=== PATIENT | female | born 1985 | race Caucasian/White ===

== ENCOUNTER 2017-08-26 11:45 | Observation (INO) | payer OTHER, BC ==
[~2017-08-26] VITALS: Ht 167.6 cm; Wt 72.6 kg
[~2017-08-26 11:45] MED LIST: FERR325E14 PO; IBUP-2213 PO; PREN-385 PO
[2017-08-26 12:24] VITALS: BP 138/86
[2017-08-26 12:46] LABS: BASOPHILS # (AUTO) 0.2 K/uL (0.00-0.22); BASOPHILS % (AUTO) 2.3 % (0.0-2.0); EOSINOPHILS # (AUTO) 0.3 K/uL (0-0.4); EOSINOPHILS % (AUTO) 2.4 % (0.0-4.0); HEMATOCRIT 36.4 % (36-48); HEMOGLOBIN 11.9 g/dL (12.0-16.0); LYMPHOCYTES # (AUTO) 0.8 K/uL (2.5-16.5); LYMPHOCYTES % (AUTO) 7.8 % (20.5-51.1); MEAN CORPUSCULAR HEMOGLOBIN 28 pg (27-31); MEAN CORPUSCULAR HGB CONC 33 g/dL (33-37); MEAN CORPUSCULAR VOLUME 86 fL (80-94); MONOCYTES # (AUTO) 0.8 K/uL (0.8-1.0); MONOCYTES % (AUTO) 7.5 % (1.7-9.3); NEUTROPHILS # (AUTO) 8.7 K/uL (1.8-7.7); PLATELET COUNT (AUTO) 244 K/uL (140-450); RED BLOOD CELL COUNT(AUTO) 4.22 MIL/uL (4.20-5.40); RED CELL DISTRIBUTION WIDTH 14.2 % (11.6-13.7); WHITE BLOOD COUNT (AUTO) 10.8 K/uL (4.8-10.8)
[2017-08-26 12:55] LABS: ANION GAP 12.5 (8-16); CARBON DIOXIDE 26.1 mmol/L (21-32); POTASSIUM 3.6 mmol/L (3.5-5.1)
[2017-08-26 12:56] LABS: CREATININE 0.5 mg/dL (0.6-1.3)
[2017-08-26 13:07] LABS: TOTAL BILIRUBIN 0.3 mg/dL (0.0-1.0)
[2017-08-26 13:08] LABS: ALBUMIN 2.6 g/dL (3.4-5.0)
== END 2017-08-26 16:57 | disposition home or self-care (01) ==
LOC: MLD 11:45
PROVIDERS: ADMIT Obstetrics & Gynecology; ATTEND Obstetrics & Gynecology
DX: O26.892 Other specified pregnancy related conditions, second trimester (principal); R10.9 Unspecified abdominal pain; Z3A.20 20 weeks gestation of pregnancy
CPT/HCPCS: 36415; 76705; 76805; 80053; 82150; 83690; 85025; G0378; Q0092; 59025; 81000

== ENCOUNTER 2017-12-07 18:25 | Observation (INO) | payer OTHER, BC ==
[~2017-12-07] VITALS: Ht 167.6 cm; Wt 83.5 kg
[2017-12-07 19:08] VITALS: BP 126/80
[2017-12-07] MEDS ORDERED: NACL 0.9% 1,000 ML IV SCH (19:20)
[2017-12-07] MEDS ORDERED: ACETAMINOPHEN 325 MG TAB PO PRN (21:05)
[2017-12-07] MEDS ORDERED: ACETAMINOPHEN 325 MG TAB ONE (21:12)
== END 2017-12-08 00:10 | disposition home or self-care (01) ==
LOC: MLD 18:25
PROVIDERS: ADMIT Obstetrics & Gynecology; ATTEND Obstetrics & Gynecology
DX: O99.89 Other specified diseases and conditions complicating pregnancy, childbirth and the puerperium (principal); M54.9 Dorsalgia, unspecified; Z3A.36 36 weeks gestation of pregnancy
CPT/HCPCS: 81000; 96360; 96361; G0378; J7030

== ENCOUNTER 2017-12-28 18:21 | Inpatient (IN) | payer OTHER, BC ==
[~2017-12-28] VITALS: Ht 167.6 cm; Wt 83.5 kg
[~2017-12-28 18:21] MED LIST changes: -IBUP-2213 PO
[2017-12-28] MEDS ORDERED: CITRIC ACID/SODIUM CITRATE 30 ML UDC PO ONE (18:30)
[2017-12-28] MEDS ORDERED: CLINDAMYCIN 900 MG in DEXTROSE 5% 100 ML IV SCH (18:30)
[2017-12-28] MEDS ORDERED: LACTATED RINGERS 1,000 ML IV SCH (18:30)
[2017-12-28 19:15] LABS: BASOPHILS % (AUTO) 0.3 % (0.0-2.0); EOSINOPHILS # (AUTO) 0.1 K/uL (0-0.4); EOSINOPHILS % (AUTO) 0.9 % (0.0-4.0); HEMATOCRIT 35.3 % (36-48); HEMOGLOBIN 11.5 g/dL (12.0-16.0); LYMPHOCYTES # (AUTO) 1.8 K/uL (2.5-16.5); LYMPHOCYTES % (AUTO) 15.4 % (20.5-51.1); MEAN CORPUSCULAR HEMOGLOBIN 28 pg (27-31); MEAN CORPUSCULAR HGB CONC 33 g/dL (33-37); MEAN CORPUSCULAR VOLUME 84.6 fL (80-94); MONOCYTES # (AUTO) 0.8 K/uL (0.8-1.0); MONOCYTES % (AUTO) 7.2 % (1.7-9.3); NEUTROPHILS # (AUTO) 8.8 K/uL (1.8-7.7); NEUTROPHILS % (AUTO) 76.2 % (42.2-75.2); PLATELET COUNT (AUTO) 282 K/uL (140-450); RED BLOOD CELL COUNT(AUTO) 4.17 MIL/uL (4.20-5.40); RED CELL DISTRIBUTION WIDTH 15.4 % (11.6-13.7); WHITE BLOOD COUNT (AUTO) 11.6 K/uL (4.8-10.8)
[2017-12-28 19:18] LABS: APPEARANCE,URINE HAZY (CLEAR); BILIRUBIN,URINE NEGATIVE (NEGATIVE); BLOOD, URINE 3+ (NEGATIVE); COLOR,URINE YELLOW (YELLOW); LEUKOCYTE ESTERASE ,URINE NEGATIVE (NEGATIVE); NITRITE, URINE NEGATIVE (NEGATIVE); PH,URINE 6.5 (5.0-9.0); UGLUCOSE NEGATIVE (NEGATIVE)
[2017-12-28 19:30] VITALS: BP 130/79
[2017-12-28 19:34] LABS: RBC,URINE 20-50 /HPF (0-5)
[2017-12-28] MEDS ORDERED: CLINDAMYCIN 900 MG/6 ML VIAL IV ONE (20:29)
[2017-12-28] MEDS ORDERED: METHYLERGONOVINE 0.2 MG/ML AMP ONE (20:56)
[2017-12-28] MEDS ORDERED: OXYTOCIN 10 UNITS/ML VIAL ONE (20:56)
[2017-12-28] MEDS ORDERED: BUPIVACAINE-MPF 0.5% 30 ML VIAL INJ ONE (21:10)
[2017-12-28] MEDS ORDERED: oxyCODONE/APAP 5/325 MG 1 TAB TAB PO PRN (21:10)
[2017-12-28] MEDS ORDERED: TRIMETHOBENZAMIDE 200 MG/2 ML SYR IM PRN (21:10)
[2017-12-28] MEDS ORDERED: TEMAZEPAM 15 MG CAP PO PRN (21:10)
[2017-12-28] MEDS ORDERED: HYDROcodone/APAP 5/325 MG 1 TAB TAB PO PRN ×2 (21:10→21:15)
[2017-12-28] MEDS ORDERED: MORPHINE PRES FREE 10 MG/10 ML AMP IV ONE (21:10)
[2017-12-28] MEDS ORDERED: ONDANSETRON 4 MG/2 ML VIAL ONE (21:12)
[2017-12-28] MEDS ORDERED: METOCLOPRAMIDE 10 MG/2 ML INJ VIAL ONE (21:12)
[2017-12-28] MEDS ORDERED: MAGNESIUM HYDROXIDE 2400 MG/30 ML UDC PO PRN (21:15)
[2017-12-28] MEDS ORDERED: MEASLES, MUMPS, AND RUBELLA 1 VIAL SQVAC SCH (21:30)
[2017-12-28] MEDS ORDERED: METHYLERGONOVINE 0.2 MG/ML AMP IM SCH (21:30)
[2017-12-28] MEDS ORDERED: OXYTOCIN 20 UNITS in LACTATED RINGERS 1,000 ML IV SCH (21:45)
[2017-12-28] MEDS ORDERED: ONDANSETRON 4 MG/2 ML VIAL IVP PRN (21:45)
[2017-12-28] MEDS ORDERED: diphenhydrAMINE 50 MG/ML VIAL IVP PRN (21:45)
[2017-12-28] MEDS ORDERED: NALOXONE 0.4 MG/ML VIAL IVP PRN ×2 (21:45)
[2017-12-28] MEDS ORDERED: KETOROLAC 30 MG/ML VIAL IVP PRN (21:45)
[2017-12-28 22:46] LABS: ALBUMIN 2.7 g/dL (3.4-5.0); ANION GAP 17.9 (8-16); CARBON DIOXIDE 20.5 mmol/L (21-32); CREATININE 0.5 mg/dL (0.6-1.3); POTASSIUM 3.4 mmol/L (3.5-5.1); TOTAL BILIRUBIN 0.3 mg/dL (0.0-1.0)
[2017-12-29] MEDS ORDERED: OXYTOCIN 20 UNITS/LR PREMIX 1,000 ML IV ONE (01:50)
[2017-12-29] MEDS: OXYTOCIN 20 UNITS in LACTATED RINGERS 1,000 ML IV SCH ×3 (02:00→18:13)
[2017-12-29] MEDS ORDERED: OXYTOCIN 10 UNITS/ML VIAL ONE (10:04)
--- NOTE | 2017-12-29 10:27 | NUR ---
PATIENT HAS BEEN SCREENED AND CATEGORIZED LOW NUTRITION RISK. PATIENT WILL BE SEEN WITHIN 7 DAYS OF ADMISSION. 01/04/18 RON LAYTON MBA, RD
[2017-12-29 11:00] LABS: BASOPHILS % (AUTO) 0.2 % (0.0-2.0); EOSINOPHILS % (AUTO) 0.3 % (0.0-4.0); HEMATOCRIT 29.4 % (36-48); HEMOGLOBIN 9.7 g/dL (12.0-16.0); LYMPHOCYTES # (AUTO) 1.1 K/uL (2.5-16.5); LYMPHOCYTES % (AUTO) 8.3 % (20.5-51.1); MEAN CORPUSCULAR HEMOGLOBIN 28 pg (27-31); MEAN CORPUSCULAR HGB CONC 33 g/dL (33-37); MEAN CORPUSCULAR VOLUME 84.1 fL (80-94); MONOCYTES % (AUTO) 7.5 % (1.7-9.3); NEUTROPHILS # (AUTO) 11.2 K/uL (1.8-7.7); NEUTROPHILS % (AUTO) 83.7 % (42.2-75.2); PLATELET COUNT (AUTO) 219 K/uL (140-450); RED BLOOD CELL COUNT(AUTO) 3.49 MIL/uL (4.20-5.40); RED CELL DISTRIBUTION WIDTH 15.4 % (11.6-13.7); WHITE BLOOD COUNT (AUTO) 13.4 K/uL (4.8-10.8)
[2017-12-29] MEDS: SIMETHICONE 80 MG TAB.CHEW PO SCH ×2 (13:35→18:13)
[2017-12-29] MEDS: DOCUSATE SOD/SENNA 50/8.6 MG 1 TAB PO SCH (20:58)
[2017-12-30] MEDS: IBUPROFEN 800 MG TAB PO PRN ×3 (00:33→20:19)
[2017-12-30] MEDS: DOCUSATE SOD/SENNA 50/8.6 MG 1 TAB PO SCH (20:39)
[2017-12-30] MEDS: SIMETHICONE 80 MG TAB.CHEW PO SCH (21:00)
[2017-12-31] MEDS: SIMETHICONE 80 MG TAB.CHEW PO SCH ×3 (08:28→17:00)
[2017-12-31] MEDS: IBUPROFEN 800 MG TAB PO PRN (10:46)
== END 2017-12-31 17:50 | disposition home or self-care (01) | DRG 766 ==
LOC: MLD 18:21 → MFCC 23:00
PROVIDERS: ADMIT Obstetrics & Gynecology; ATTEND Obstetrics & Gynecology
PROC: 10D00Z1 Extraction of Products of Conception, Low, Open Approach (ICD-10-PCS; principal; 2017-12-28 20:00)
DX: O34.211 Maternal care for low transverse scar from previous cesarean delivery (principal); Z37.0 Single live birth; Z3A.40 40 weeks gestation of pregnancy; Z86.32 Personal history of gestational diabetes
CPT/HCPCS: 36415; 51702; 80053; 81001; 85025; 86592; 86886; 86900; 86901; 87086; J1200; J1885; J2210; J2270; J2405; J2590; J2765; J3490; J7120